=== PATIENT | male | born 1950 | race Caucasian/White ===

== ENCOUNTER → 2017-01-22 | Outpatient (CLI) | payer OTHER, MEDICARE ==
[~2017-01-22] MED LIST: ACIPHEX 20 MG T20 MG PO; AMBIEN 10 MG TA10 MG PO; AMBIEN 5 MG TABL5 M1 PO; BENICAR HCT 401 EACH PO; BENICAR20 MG PO; CITRATE OF MAG296 ML PO; CLONAZEPAM 0.50.5 M1 PO; CLONAZEPAM PO; COUMADIN 5 MG TA5 M1 PO; DESYREL50 MG PO; ENOXAPARIN120 MG/0.8 PO; LORTAB 7.5/5001 TA3 PO; ONDANSETRON HCL4 M2 PO; PRILOSEC 20 MG20 MG PO; SIMVASTATIN40 MG PO; TRAZODONE PO; VENTOLIN HFA 1818 GM INH; ZANTAC 150MG T150 M1 PO
== END ==
LOC: CAT 07:22
DX: J98.11 Atelectasis (principal); R93.8 Abnormal findings on diagnostic imaging of other specified body structures